=== PATIENT | male | born 1995 | race African-American/Black ===

== ENCOUNTER 2024-05-19 18:30 | Emergency (ER) | payer OTHER ==
--- NOTE | 2024-05-19 18:43 | ED ---
Psych HPI - General Source: patient, RN notes reviewed <Shruthi Pearl - Last Filed: 05/19/24 18:42> - General Source: patient, RN notes reviewed, old records reviewed <Paco Santana - Last Filed: 05/19/24 22:11> - General Stated Complaint: Petition Time Seen by Provider: 05/19/24 18:42 - History of Present Illness Initial Comments: Quick [id number] male presented to the emergency department with 'feeling down and depressed'. denies SI/HI, auditory or visual hallucinations. is visiting a friend, patient is from [place]. (Shruthi Pearl) Patient is a 28-year-old male who presents emergency department after being petitioned by police. Petition states "Christiano stated he wanted to kill himself b y running in front of a truck." When I discussed this with the patient, he states he should have said that he does not mean it. Denies suicidal or homicidal ideations, times, plans. Denies any visual or auditory hallucinations. He has no other acute complaints this time. Denies using alcohol. Denies any drugs. Presents for further evaluation. States he is not on any medications. (Paco Santana) - Related Data Home Medications Medication Instructions Recorded Confirmed No Known Home Medications 05/19/24 05/19/24 Allergies Allergy/AdvReac Type Severity Reaction Status Date / Time No Known Allergies Allergy Verified 05/19/24 20:06 Review of Systems ROS Other: All systems not noted in ROS Statement are negative. <Shruthi Pearl - Last Filed: 05/19/24 18:42> ROS Other: All systems not noted in ROS Statement are negative. <Paco Santana - Last Filed: 05/19/24 22:11> ROS Statement: Those systems with pertinent positive or pertinent negative responses have been documented in the HPI. Review of Systems: CONST: Denies fever EYES: Denies blurry vision ENT: Denies nasal congestion C/V: Denies Chest pain RESP: Denies shortness of breath GI: Denies abdominal pain : Denies dysuria SKIN: Denies rash. MSK: Denies joint pain. NEURO: Denies headache (Paco Santana) General Exam <Shruthi Pearl - Last Filed: 05/19/24 18:42> <Paco Santana Last Filed: 05/19/24 22:11> - General Exam Comments Initial Comments: Visual Physical Exam Vital signs reviewed General: Well-appearing, nontoxic, no acute distress. Head: Normocephalic, atraumatic Eyes: PERRLA, EOMI ENT: Airway patent Chest: Nonlabored breathing Skin: No visual rash, normal skin tone Neuro: Alert and oriented 3 Musculoskeletal: No gross abnormalities (Shruthi Pearl) General: Appears in no acute distress. HEAD: Normal with no signs of head trauma. EYES: EOMI. ENT: Hearing grossly intact. RESPIRATORY: No respiratory distress. C/V: Regular rate and rhythm. ABD: Abdomen is nondistended. EXT: No obvious deformity. SKIN: No rashes or lesions observed on exposed skin. NEURO: Alert and oriented. (Paco Santana) Course Vital Signs 05/19/24 19:01 Temperature 98.1 F Pulse Rate 61 Respiratory 18 Rate Blood Pressure 131/86 O2 Sat by Pulse 100 Oximetry Medical Decision Making <Shruthi Pearl - Last Filed: 05/19/24 18:42> <Paco Santana - Last Filed: 05/19/24 22:11> - Medical Decision Making I completed the quick note portion of this chart signed Shruthi Pearl PA-C (Shruthi Pearl) Was pt. sent in by a medical professional or institution ([place], DIRECTOR OF SCOUT WORK, urgent care, hospital, or residential...) When possible be specific @ -No Did you speak to anyone other than the patient for history (EMS, parent, family, police, friend...)? What history was obtained from this source @ -No Did you review nursing and triage notes (agree or disagree)? Why? @ -I reviewed and agree with nursing and triage notes Were old charts reviewed (outside hosp., previous admission, EMS record, old EKG, old radiological studies, urgent care reports/EKG's, residential records)? Report findings @ -No old charts were reviewed Differential Diagnosis (chest pain, altered mental status, abdominal pain women, abdominal pain men, vaginal bleeding, weakness, fever, dyspnea, syncope, headache, dizziness, GI bleed, back pain, seizure, CVA, palpatations, mental health, musculoskeletal)? @ -Differential Mental Health Depression, anxiety, bipolar, psychosis, schizophrenia, borderline personality, situational depression, adjustment disorder, behavioral disorder, brain tumor, malingering, substance abuse, encephalopathy, medication reaction, dementia, hypothyroidism, degenerative neurologic disorder, lupus.... This is not meant to be all-inclusive list EKG interpreted by me (3pts min.). @ -None done X-rays interpreted by me (1pt min.). @ -None done CT interpreted by me (1pt min.). @ -None done U/S interpreted by me (1pt. min.). @ -None done What testing was considered but not performed or refused? (CT, X-rays, U/S, labs)? Why? @ -None What meds were considered but not given or refused? Why? @ -None Did you discuss the management of the patient with other professionals (professionals i.e. , PA, DIRECTOR OF SCOUT WORK, lab, RT, psych nurse, medical social consultant, director of corporate sales, teacher, service officer, telephonic case manager)? Give summary @ -EPS notified of the consult Was smoking cessation discussed for >3mins.? @ -No Was critical care preformed (if so, how long)? @ -No Were there social determinants of health that impacted care today? How? (Homelessness, low income, unemployed, alcoholism, drug addiction, transportation, low edu. Level, literacy, decrease access to med. care, fpc, rehab)? @ -No Was there de-escalation of care discussed even if they declined (Discuss DNR or withdrawal of care, Hospice)? DNR status @ -No What co-morbidities impacted this encounter? (DM, HTN, Smoking, COPD, CAD, Cancer, CVA, ARF, Chemo, Hep., AIDS, mental health diagnosis, sleep apnea, morbid obesity)? @ -None Was patient admitted / discharged? Hospital course, mention meds given and route, prescriptions, significant lab abnormalities, going to OR and other pertinent info. @ -Based on the patient's presentation and physical exam, he is petitioned and presents for mental health evaluation. BAT is 0. UDS is pending. Vitals are within acceptable limits. At this time, patient is medically cleared for evaluation by psychiatry. Disposition pending psychiatric evaluation. EPS notified of the consult. Evaluated by EPS Arely. Patient cleared by psychiatry and does not require admission for psychiatric care and does not meet criteria for psychiatric admission. Patient will be discharged home with a safety plan. He was in agreement this plan. Undiagnosed new problem with uncertain prognosis? @ -No Drug Therapy requiring intensive monitoring for toxicity (Heparin, Nitro, Insulin, Cardizem)? @ -No Were any procedures done? @ -No Diagnosis/symptom? @ -Encounter for psychiatric evaluation Acute, or Chronic, or Acute on Chronic? @ -Acute Uncomplicated (without systemic symptoms) or Complicated (systemic symptoms)? @ -Uncomplicated Side effects of treatment? @ -None Exacerbation, Progression, or Severe Exacerbation] @ -No Poses a threat to life or bodily function? @ -Unlikely (Paco Santana) Disposition <Shruthi Pearl - Last Filed: 05/19/24 18:42> Is patient prescribed a controlled substance at d/c from ED?: No Time of Disposition: 20:37 <Paco Santana - Last Filed: 05/19/24 22:11> Clinical Impression: Encounter for psychiatric assessment Disposition: HOME SELF-CARE Condition: Good Additional Instructions: follow safety plan Referrals: None,Stated [Primary Care Provider] - 1-2 days
[2024-05-19 19:08] VITALS: BP 131/86; PULSE 61; RESP 18; TEMP 98.1
== END 2024-05-19 20:59 | disposition home or self-care (01) ==
LOC: EC 18:30
DX: Z00.8 Encounter for other general examination (principal)
CPT/HCPCS: 82075; 99284